=== PATIENT | male | born 1995 | race Caucasian/White ===

== ENCOUNTER 2023-04-08 12:21 | Emergency (ER) | payer OTHER ==
[2023-04-08 13:58] LABS: HIV (1/2) Antibody/Antigen Non-Reactive (NonReactive); HIV 1/2 INDEX 0.21 S/CO (<1.00); Hep C IgG Ab Non-Reactive S/CO (NonReactive); Hep C Index 0.09 S/CO (0-0.79)
[2023-04-08 14:52] LABS: HBSAB Concentration 133.48 mIU/mL; Hep B Surf AB Reactive (NonReactive)
== END 2023-04-08 13:08 | disposition home or self-care (01) ==
LOC: ERS 12:21
DX: S61.231A Puncture wound without foreign body of left index finger without damage to nail, initial encounter (principal); W27.3XXA Contact with needle (sewing), initial encounter
CPT/HCPCS: 36415; 99283